=== PATIENT | female | born 1960 | race Caucasian/White ===

== ENCOUNTER 2016-09-26 17:00 | Emergency (ER) | payer OTHER ==
[2016-09-26] MEDS ORDERED: ACETAMINOPHEN 325 MG TABLET PO ONE (17:32)
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
[2016-09-26 17:48] VITALS: BP 145/87
== END 2016-09-26 18:05 | disposition home or self-care (01) ==
LOC: ER 17:00
DX: S50.01XA Contusion of right elbow, initial encounter (principal); M25.521 Pain in right elbow; V43.62XA Car passenger injured in collision with other type car in traffic accident, initial encounter; Z88.2 Allergy status to sulfonamides; F17.200 Nicotine dependence, unspecified, uncomplicated; Z71.6 Tobacco abuse counseling
CPT/HCPCS: 99283